=== PATIENT | female | born 1985 | race American Indian/Alaskan Native ===

== ENCOUNTER 2018-07-20 21:27 | Emergency (ER) | payer BC ==
[2018-07-20 21:32] VITALS: BMI 36.1
[2018-07-20 21:38] VITALS: TEMP 98.2
--- NOTE | 2018-07-20 21:41 | ED PDOC ---
Arrival/HPI - General Time Seen by Provider: 07/20/18 21:28 Historian: Patient - History of Present Illness Narrative History of Present Illness (Text): 07/20/18 21:38 A 33 year old female with no significant past medical history presents to the emergency room accompanied by her best friend complaining of heart palpitations since earlier today. Patient reports experiencing associated shortness of breath and bilateral hand and feet tingling. Patient states her symptoms occurred when she was standing and talking. Patient notes she is currently not on any medication. Patient's best friend notes patient has not seen a doctor since she was a child. Patient denies any chest pain, headache, or any other complaints. Time/Duration: 1-3 hours Symptom Onset: Sudden Symptom Course: Improving Activities at Onset: Light Context: Home Past Medical History - Provider Review Nursing Documentation Reviewed: Yes Family/Social History - Physician Review Nursing Documentation Reviewed: Yes Family/Social History: No Known Family HX Allergies/Home Meds Allergies/Adverse Reactions: Allergies No Known Allergies Allergy (Verified 07/20/18 21:32) Home Medications: Home Meds Medication Instructions Recorded Confirmed No Known Home Med 07/20/18 07/20/18 Review of Systems - Physician Review All systems were reviewed & negative as marked: Yes - Review of Systems Respiratory: SOB Cardiovascular: Palpitations. absent: Chest Pain Neurological: Other (hand and feet tingling). absent: Headache Physical Exam - Physical Exam Narrative Physical Exam (Text): 07/20/18 21:38 Gen: VS reviewed, alert, well developed, well nourished, nontoxic, mild distress. ENT: normal pharynx. Eye: EOMI, PERRL. Neck: no JVD, supple, no adenopathy. CV: Rapid heart rate, no rubs, no murmur, no gallops, S1, S2, pulses equal and strong. Pulm: no distress, clear to auscultation, no wheeze, no rhonchi, breath sounds equal, no rales. Abd: soft, nontender, no guarding, no rebound, no rigidity, normal bowel sounds. Ext: no edema. Skin: good color, no rash, no cyanosis. Psych: responds appropriately to questions, normal affect. Neuro: oriented x 3, CN2-12 intact grossly, motor intact, sensation intact. Vital Signs Reviewed: Yes Vital Signs Temp Pulse Resp BP Pulse Ox 04/05/19 21:37 98.2 F 127 H 18 154/101 H 99 Temperature: Afebrile Blood Pressure: Hypertensive Pulse: Tachycardic Respiratory Rate: Normal Appearance: Positive for: Well-Appearing, Non-Toxic Mental Status: Positive for: Alert and Oriented X 3 Medical Decision Making ED Course and Treatment: 07/20/18 21:38 Impression: 33 year old female presenting to the emergency room complaining of heart palpitations. Plan: -- EKG -- Labs -- CBC -- D Dimer -- COAGs -- Chest X-ray -- Reassess and disposition Progress Notes: 07/20/18 23:24 patient remains asymptomatic, labs ok, cxr unremarkable. at rest, heart rate is 90 but ambulatory elevates to 118. will bolus with another liter of IVF and reassess. 07/21/18 01:21 patient feels well, heart rate normalized, patient appears stable for dc and will refer to cardiology. patient understands and agreeable to plan and understands to follow up for any new or worsening symptoms. - RAD Interpretation Narrative RAD Interpretations (Text): 07/20/18 22:36 cxr my read: no focal infiltrate, no ptx, no cardiomegaly Ge[employer] Laboratory Chief: ED Physician - EKG Interpretation EKG Interpretation (Text): 07/20/18 22:14 EKG: Ordered, reviewed, and independently interpreted the EKG. Rate : 104 BPM Rhythm : Sinus tachycardia Interpretation : Normal QRS, normal axis, no ST-T wave changes. Interpreted by ED Physician: Yes - Scribe Statement The provider has reviewed the documentation as recorded by the [place] All medical record entries made by the Jessicaibtrisha were at my direction and personally dictated by me. I have reviewed the chart and agree that the record a ccurately reflects my personal performance of the history, physical exam, medical decision making, and the department course for this patient. I have also personally directed, reviewed, and agree with the discharge instructions and disposition. Disposition/Present on Arrival - Present on Arrival Any Indicators Present on Arrival: No - Disposition Have Diagnosis and Disposition been Completed?: Yes Diagnosis: Heart palpitations, Elevated blood pressure reading without diagnosis of hypertension Disposition: HOME/ ROUTINE Disposition Time: 01:23 Patient Plan: Discharge Condition: STABLE Discharge Instructions (ExitCare): Palpitations Additional Instructions: return for any new or worsening symptoms. follow up with a care management assistant as soon as possible. follow up with a primary care doctor to have your elevated blood pressure rechecked. Referrals: PCP,NO [Primary Care Provider] - Follow up with primary Kike Hardy MD [Staff Provider] - Follow up with primary Claudette No MD [Medical Doctor] - Follow up with primary [employer] [facility] [Outside] - Follow up with primary
[2018-07-20] MEDS ORDERED: Sodium Chloride 0.9% 1,000 ML IV STA ×2 (21:54→23:08)
[2018-07-20 22:05] LABS: BASO # 0.03 K/mm3 (0.0-2.0); BASO % 0.4 % (0.0-3.0); EOS # 0.2 (0.0-0.7); EOS % 2.7 % (1.5-5.0); LYMPH # 3.3 (1.2-3.4); LYMPH % 41.5 % (22.0-35.0); MEAN CELL VOLUME 90.1 fl (80.0-105.0); MEAN CORPUSCULAR HEMOGLOBIN 29.3 pg (25.0-35.0); MEAN CORPUSCULAR HGB CONC 32.5 g/dl (31.0-37.0); MEAN PLATELET VOLUME 9.5 fl (7.0-11.0); MONO # 0.4 (0.1-0.6); MONO % 4.6 % (1.0-6.0); RBC 4.44 10^6/uL (3.5-6.1); RED CELL DISTRIBUTION WIDTH 12.4 % (11.5-14.5); WHITE BLOOD COUNT 7.9 10^3/uL (4.5-11.0)
[2018-07-20 22:10] LABS: INR 1.08
[2018-07-20 22:11] LABS: ALB/GLOB RATIO 1.3 (1.1-1.8); ALBUMIN 4.3 g/dL (3.0-4.8); ALT/SGPT 31 U/L (7-56); AST/SGOT 39 U/L (14-36); BLOOD UREA NITROGEN 13 mg/dL (7-21); CALCIUM 9.8 mg/dL (8.4-10.5); GFR NON-AFRICAN AMERICAN > 60
[2018-07-20 22:12] LABS: D DIMER < 200 ng/mlDDU (0-243)
[2018-07-20 22:23] LABS: B-TYPE NATRIURETIC PEPTIDE 59.9 pg/mL (0-450); TROPONIN I < 0.01 ng/mL
[2018-07-21 00:11] VITALS: BP 127/94; PULSE 85; RESP 17; O2SAT 98
--- NOTE | 2018-07-21 09:15 | RAD ---
HISTORY: dyspnea COMPARISON: None available. TECHNIQUE: Chest PA and lateral, 2 views FINDINGS: LUNGS: No focal consolidation. Please note that chest x-ray has limited sensitivity for the detection of pulmonary masses. PLEURA: No significant pleural effusion identified. No definite pneumothorax . CARDIOVASCULAR: The cardiomediastinal silhouette appears within normal limits of size. No atherosclerotic calcification present. OSSEOUS STRUCTURES: No acute osseous abnormality identified. VISUALIZED UPPER ABDOMEN: Elevation/eventration of the right hemidiaphragm. OTHER FINDINGS: None. IMPRESSION: No focal consolidation.
--- NOTE | 2018-07-21 15:18 | CARD ---
APPROVED REPORT Date of service: 07/20/2018 EKG Measurement Heart [id number] <Conclusion> Sinus tachycardia Otherwise normal ECG
== END 2018-07-21 01:33 | disposition home or self-care (01) ==
LOC: ED 21:27
DX: R00.2 Palpitations (principal); R03.0 Elevated blood-pressure reading, without diagnosis of hypertension
CPT/HCPCS: 71046; 80053; 81025; 83735; 83880; 84443; 84484; 85025; 85378; 85610; 85730; 93005; 96360; 99283; J7030